=== PATIENT | male | born 1960 | race Caucasian/White ===

== ENCOUNTER → 2024-06-04 | Outpatient (CLI) | payer BC ==
--- NOTE | 2024-06-04 08:39 | MR ---
EXAMINATION TYPE: MR Prostate wo/w con DATE OF EXAM: 06/04/2024 COMPARISON: None. INDICATION: Elevated PSA. PSA: 4.46 ng/ml on May 09, 2024 Recent Biopsy and Date: None Pathology Report (If Applicable): n/a TECHNIQUE: Examination was performed using a 3T MRI without an endorectal coil. Multiparametric imaging was perf ormed with T2 mutliplanar sequences, axial diffusion weighted imaging and dynamic contrast enhanced i maging, utilizing 9 mL intravenous Gadobutrol gadolinium contrast. FINDINGS: PROSTATE VOLUME: 3.7 cm SI x 3.1 cm AP x 3.8 cm LR Vol= 22.8 cc PSA DENSITY: 0.20 ng/ml/cc Normal-sized prostate. There is slightly diminished linear and wedge-shaped signal on ADC mapping in the peripheral zone bilaterally. No areas of marked diminished signal are identified. No areas of sig nificant increased signal on diffusion-weighted imaging. Physician shoulder shows heterogeneity witho ut area of significant suspicious diminished T2 signal. Highest PI-Rads 2. Seminal vesicles are unremarkable. Urinary bladder shows mild to moderate wall thickening and trabecu lation. No destructive osseous lesions are seen.. IMPRESSION: Normal-sized prostate. A focus of clinically significant cancer is not identified. Consider imaging guided random biopsy if PSA continues to rise. Highest Assessment Category: 2 MRI Stage: T0 N0 M0 based on review of pelvic images. False negative rates for MRI range from 5-20% depending on risk profile. Assessment Categories: 1 ? Very low (clinically significant cancer is highly unlikely to be present) 2 ? Low (clinically significant cancer is unlikely to be present) 3 ? Intermediate (the presence of clinically significant cancer is equivocal) 4 ? High (clinically significant cancer is likely to be present) 5 ? Very high (clinically significant cancer is highly likely to be present) Locations: PZ = peripheral zone; TZ = transition zone CZ=central zone; AFS = anterior fibromuscular stroma a=anterior half (i.e. PZa=anterior half of peripheral zone); pm= posterior medial (i.e PZpm) pl = postero-lateral (i.e. PZpl); p = posterior half (i.e. TZp) ; a = anterior half (i.e TZa or P Za) Other: N=no or no; E= equivocal; Y=yes EPE = extraprostatic extension NVB = neurovascular bundle NA = not applicable/not available [facility] Last, , 06/04/2024 8:36 AM
== END | disposition home or self-care (01) ==
LOC: RADMRIMAIN 06:57
PROVIDERS: ATTEND Urology
DX: R97.20 Elevated prostate specific antigen [PSA] (principal)
CPT/HCPCS: 72197; A9585